=== PATIENT | male | born 1970 | race African-American/Black ===

== ENCOUNTER 2017-02-26 21:40 | Emergency (ER) | payer MEDICAID, MEDICARE ==
[~2017-02-26] VITALS: Ht 188 cm; Wt 81.6 kg
[2017-02-26] MEDS ORDERED: ALBUTEROL2.5 MG/3 M INH (21:41)
[2017-02-26 21:45] VITALS: BP 135/79
[2017-02-26] MEDS ORDERED: PredniSONE 5mg tab ONE (21:58)
[2017-02-26] MEDS ORDERED: PredniSONE 20mg tab ORAL ONE (22:00)
[2017-02-26] MEDS ORDERED: DuoNeb 0.5-3(2.5)mg/3ml neb HHN ONE (22:00)
[2017-02-26] MEDS ORDERED: ALBUTEROL SULF8.5 GM INH (22:15)
[2017-02-26] MEDS ORDERED: PREDNISONE20 MG ORAL (22:15)
--- NOTE | 2017-02-26 22:16 | Emergency Room Report ---
History of Present Illness General Chief Complaint: Asthma Source: Patient Present Illness HPI Is a 46-year-old male with a history of asthma. He presents with chief complaint of asthma exacerbation. He thinks his cause by the hot temperature. Normally he get treatment and get better relief. Did not get better today. He is out of his inhaler for last 2 weeks. Denies any fever chills denies any drug use. Better after breathing treatment by EMS. Allergies: Coded Allergies: No Known Allergies (Unverified , 02/26/17) Patient History Past Medical History: see triage record, old chart reviewed, asthma Past Surgical History: none Pertinent Family History: none Social History: Denies: smoking Immunizations: other Reviewed Nursing Documentation: PMH: Agreed, PSxH: Agreed Nursing Documentation-PMH Hx Asthma: Yes Review of Systems Eye: Denies: blurred vision, eye pain ENT: Denies: ear pain, nose congestion, throat swelling Respiratory: Reports: shortness of breath, wheezing, Denies: cough Cardiovascular: Denies: chest pain, palpitations Gastrointestinal: Denies: abdominal pain, diarrhea, nausea, vomiting Musculoskeletal: Denies: back pain, joint pain Skin: Denies: rash Neurological: Denies: headache, numbness Endocrine: Denies: increased thirst, increased urine Hematologic/Lymphatic: Denies: easy bruising All Other Systems: negative except mentioned in HPI Physical Exam Vital Signs Date Time Temp Pulse Resp B/P Pulse Ox O2 Delivery O2 Flow Rate FiO2 02/26/17 21:36 97.9 116 20 119/85 98 Simple Mask 10.0 vitals normal said her tachycardia Sp02 EP Interpretation: reviewed, normal General Appearance: well appearing, no apparent distress, alert Head: normocephalic, atraumatic Eyes: bilateral eye EOMI, bilateral eye PERRL ENT: hearing grossly normal, normal pharynx Neck: full range of motion, supple, no meningismus Respiratory: chest non-tender, decreased breath sounds, accessory muscle use, wheezing Cardiovascular #1: regular rate, rhythm, no murmur Gastrointestinal: normal bowel sounds, non tender, no mass, no organomegaly, no bruit, non-distended Musculoskeletal: back normal, gait/station normal, normal range of motion Psychiatric: mood/affect normal Skin: warm/dry Medical Decision Making Diagnostic Impression: Primary Impression: Asthma attack ER Course Patient with asthma exacerbation. Lungs cleared up. Steroids started. No evidence of ACS, PE, pneumonia, dissection to name a few. He wants to leave since he is back to baseline now. Last Vital Signs Date Time Temp Pulse Resp B/P Pulse Ox O2 Delivery O2 Flow Rate FiO2 02/26/17 21:57 106 18 Room Air 02/26/17 21:57 96 02/26/17 21:36 97.9 119/85 10.0 Status: improved Disposition: HOME, SELF-CARE Condition: Stable Scripts Prednisone* (PREDNISONE*) 20 Mg Tablet 60 MG ORAL DAILY, #12 TAB Prov: SOSA MALDONADO M.D. 02/26/17 Albuterol Sulfate* (ALBUTEROL SULFATE MDI*) 8.5 Gm Hfa.aer.ad 2 PUFF INH Q4H Y for cough/wheezing, #1 EA 0 Refills Prov: SOSA MALDONADO M.D. 02/26/17 Patient Instructions: Asthma, Adult Additional Instructions: Followup with your DrAmy in 7 days. Stay indoors if it is hot outside. Return if symptom worsen. SOSA MALDONADO M.D. February 26, 2017 22:16
[2017-02-26 22:20] VITALS: BP 130/78
== END 2017-02-26 22:30 | disposition home or self-care (01) ==
LOC: EDBD 21:40 → EMR 22:22
DX: J45.901 Unspecified asthma with (acute) exacerbation (principal)
CPT/HCPCS: 94640; 94664; 99284; J7620